=== PATIENT | male | born 1965 | race Caucasian/White ===

== ENCOUNTER 2021-01-17 13:54 | Emergency (ER) | payer BC ==
[2021-01-17 14:06] VITALS: O2SAT 99
--- NOTE | 2021-01-17 14:06 | ERPHSYRPT ---
- History of Present Illness Time Seen by Provider: 01/17/21 14:06 Source: patient Exam Limitations: no limitations Physician History: This is a right-handed 55-year-old white male who has had chronic left shoulder pain that has worsened to the point that now he cannot raise or fully extend or flex his left shoulder. 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 He did see his nurse practitioner approximately a month to 2 months ago and patient underwent an x-ray of the left shoulder there is no evidence of any acute fracture or dislocation. However there were some chronic degenerative changes present. In the time since that visit the pain in left shoulder is so significant now that he cannot do his work. He has no chest pain. He has no shortness of breath. He did not suffer any acute traumatic injury or fall. Occurred: other (Chronic and worsening over the last month) Quality: aching, throbbing Severity of Pain-Max: moderate Severity of Pain-Current: moderate Extremities Pain Location: shoulder: left Modifying Factors: Improves With: movement (Worsens) Associated Symptoms: none Allergies/Adverse Reactions: No Known Drug Allergies Allergy (Unverified 01/17/21 14:07) Travel Risk - International Travel Have you traveled outside of the country in past 3 weeks: No - Coronavirus Screening Are you exhibiting any of the following symptoms?: No Close contact with a COVID-19 positive Pt in past 14-21 Days: No - Review of Systems Constitutional: No Symptoms Eyes: No Symptoms Ears, Nose, & Throat: No Symptoms Respiratory: No Symptoms Cardiac: No Symptoms Abdominal/Gastrointestinal: No Symptoms Genitourinary Symptoms: No Symptoms Musculoskeletal: Joint Pain (Left shoulder) Skin: No Symptoms Neurological: No Symptoms Psychological: No Symptoms Endocrine: No Symptoms Hematologic/Lymphatic: No Symptoms Immunological/Allergic: No Symptoms All Other Systems: Reviewed and Negative - Past Medical History Pertinent Past Medical History: Yes - Past Surgical History Past Surgical History: Yes - Nursing Vital Signs Nursing Vital Signs: Initial Vital Signs Temperature 98.3 F 01/17/21 13:58 Pulse Rate 78 01/17/21 13:58 Respiratory Rate 17 01/17/21 13:58 Blood Pressure 175/100 01/17/21 13:58 O2 Sat by Pulse Oximetry 99 01/17/21 13:58 Pain Scale Pain Intensity 9 - Physical Exam General Appearance: mild distress, alert, anxiety, thin Eyes, Ears, Nose, Throat Exam: normal ENT inspection, moist mucous membranes Neck Exam: normal inspection, non-tender, supple, full range of motion Cardiovascular/Respiratory Exam: chest non-tender, no respiratory distress Abdominal Exam: non-tender Back Exam: normal inspection, normal range of motion, No CVA tenderness, No vertebral tenderness Shoulder Exam: normal inspection, no evidence of injury, limited ROM, soft tissue tenderness Elbow/Forearm Exam: normal inspection, non-tender, no evidence of injury, normal ROM Wrist Exam: normal inspection, non-tender, no evidence of injury, normal ROM Hand Exam: normal inspection, non-tender, no evidence of injury, normal ROM Neuro/Tendon Exam: normal sensation, normal motor functions, normal tendon functions Mental Status Exam: alert, oriented x 3, cooperative Skin Exam: normal color, warm, dry SpO2 Interpretation: normal O2 Delivery: Room Air - Course Nursing assessment & vital signs reviewed: Yes Ordered Tests: Active Orders 24 hr Category Date Time Status SHOULDER Stat Exams 01/17/21 14:06 Completed - Progress Progress: unchanged Progress Note: 01/17/21 14:58 X-ray of left shoulder shows no acute fracture or dislocation. There are chronic degenerative changes noted. This is no different than the x-ray of the left shoulder that was performed on 11/30/2020. - Departure Departure Disposition: Home Clinical Impression: Left shoulder pain Condition: Stable Critical Care Time: No Referrals: ENRRIQUE NICK [Primary Care Provider] - Follow up/PCP as directed Additional Instructions: Follow-up with your primary provider for scheduling MRI if indicated. Take your medication as prescribed. Prescriptions: Oxycodone HCl/Acetaminophen [Percocet 5-325 mg Tablet] 1 each PO Q8H PRN PRN #8 tablet MDD 3 PRN Reason: Pain Cyclobenzaprine HCl 10 mg [Cyclobenzaprine 10 MG] 10 mg PO TID #10 tablet Prednisone 10 mg [Deltasone 10 mg] 10 mg PO TID #12 tablet
--- NOTE | 2021-01-17 14:40 | XRAY ---
Indication: Chronic pain. No known injury. Comparison: November 30, 2020. 3 view left shoulder unchanged again demonstrating 2.4 cm curvilinear calcification adjacent to greater tuberosity either degenerative versus sequela old injury/inflammation and tiny left mid lung calcified granuloma. No new/acute abnormalities.
[2021-01-17 15:07] VITALS: BP 175/98; PULSE 71
== END 2021-01-17 15:18 | disposition home or self-care (01) ==
LOC: ED 13:54
DX: M25.512 Pain in left shoulder (principal)
CPT/HCPCS: 73030; 99283

== ENCOUNTER 2024-12-07 06:11 | Day surgery (SDC) | payer BC ==
[2024-12-07] MEDS ORDERED: Lactated Ringers 1,000 ML IV ONE (06:49)
[2024-12-07] MEDS: Lactated Ringers 1,000 ML IV SCH (06:56)
[2024-12-07] MEDS ORDERED: Lactated Ringers 1,000 ML IV SCH (07:00)
[2024-12-07] MEDS ORDERED: Versed 2 MG/2 ML Injection ONE (07:57)
[2024-12-07] MEDS ORDERED: propofoL IV ONE ×2 (07:57→08:13)
[2024-12-07] MEDS ORDERED: Xylocaine-Mpf 2% 5 Ml Vial ONE (07:57)
[2024-12-07] MEDS ORDERED: SUBLIMAZE 100 MCG/2 ML ONE (08:09)
[2024-12-07 09:07] VITALS: RESP 16; O2SAT 99
[2024-12-07 09:20] VITALS: BP 160/85; PULSE 60; TEMP 97.4
--- NOTE | 2024-12-08 12:31 | OP ---
SURGERY DATE/TIME: 12/07/2024 [id number] PREOPERATIVE DIAGNOSIS: Screening exam. POSTOPERATIVE DIAGNOSIS: Moderate sigmoid diverticulosis, otherwise normal colon. PROCEDURE: Colonoscopy. SURGEON: Chris Desai MD ANESTHESIA: Medication given by the anesthesia department. INDICATIONS: The patient is a 59-year-old white male patient presenting now for screening colonoscopy. He reports that he had examination 10 years ago without any problems. The patient was felt to need to have endoscopic evaluation. He was apprised of the risks of the procedure including risk of perforation, phlebitis, untoward reaction to medication, bleeding, and missed lesions. The patient verbalized understanding and desired to have the procedure performed. DESCRIPTION OF PROCEDURE AND FINDINGS: The patient was given medication by the anesthesia department. He had continuous pulse oximetry, ECG monitoring, and intermittent blood pressure monitoring during the examination. He was placed in left lateral decubitus position. Digital rectal examination was performed and revealed normal anal sphincter tone, no masses, and normal prostate. The flexible Olympus videocolonoscope was used to intubate the rectum. A view of the colon was developed sequentially to the cecum. Upon insertion and withdrawal including retroflexion in the rectum was noted moderate sigmoid diverticulosis. With no other mucosal lesions being encountered, the scope was removed. The patient tolerated the procedure well and sent back to outpatient recovery in good condition. Prep was noted to be fair to good.
== END 2024-12-07 09:26 | disposition home or self-care (01) ==
LOC: SDC 06:11
PROVIDERS: ATTEND Family Medicine
DX: Z12.11 Encounter for screening for malignant neoplasm of colon (principal); K57.30 Diverticulosis of large intestine without perforation or abscess without bleeding